=== PATIENT | male | born 1960 | race Caucasian/White ===

== ENCOUNTER 2018-06-01 09:29 | Emergency (ER) | payer OTHER ==
[~2018-06-01] VITALS: Ht 175.3 cm; Wt 86.2 kg
[2018-06-01] MEDS ORDERED: PROSCAR5 MG (09:50)
== END 2018-06-01 16:11 | disposition home or self-care (01) ==
LOC: ER 09:29
DX: S93.691A Other sprain of right foot, initial encounter (principal); X50.0XXA Overexertion from strenuous movement or load, initial encounter; Y93.01 Activity, walking, marching and hiking; Y92.89 Other specified places as the place of occurrence of the external cause; Y99.8 Other external cause status